=== PATIENT | male | born 1960 | race American Indian/Alaskan Native ===

== ENCOUNTER 2020-11-02 11:02 | Inpatient (IN) | payer MEDICAID, MEDICARE ==
[2020-11-02] MEDS ORDERED: SODIUM CHLORIDE 0.9% 1000 ML 1,000 ML IV ONE (17:16)
[2020-11-02] MEDS ORDERED: ONDANSETRON 4 MG/2 ML INJ IV ONE (17:16)
[2020-11-02] MEDS ORDERED: MORPHINE 4 MG/1 ML INJ IV ONE (17:16)
--- NOTE | 2020-11-02 17:21 | Emergency Department Report ---
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 No preceding fall, trauma, or injury. Patient is not anticoagulated. No history of similar symptoms. Patient took muscle relaxers with limited relief. No known sick contacts. Patient does not have a history of recurrent headaches or neck pain. Patient has not received his COVID-19 vaccine series. No known history of cardiac issues or kidney issues. Endorses occasional alcohol use. Denies fever, chills, cough, chest pain, syncope, seizure, paresthesias, numbness, weakness. Denies all other complaints at this time. History obtained using [employer] [place] regulatory product manager via iPhone/iPad. - Related Data Allergies Allergy/AdvReac Type Severity Reaction Status Date / Time No Known Allergies Allergy Verified 11/02/20 20:32 ED Review of Systems ROS: Stated complaint: VOMITING/THROAT/NECK(L) SIDE ARM PAIN Other details as noted in HPI Other: Further review of systems is limited secondary to patient's baseline deafness. See HPI for details. ED Past Medical Hx - Past Medical History Hx Headaches / Migraines: Yes Additional medical history: MUSCLE SPASMS - Social History Smoking Status: Never Smoker Substance Use Type: None ED Physical Exam - General Limitations: Other - Other Other exam information: General: Awake and alert. No acute distress. Head: Atraumatic, normocephalic. Eyes: EOMI. Pupils are equal and round, reactive to light. Normal sclera and conjunctiva. ENT: Oral mucosa is moist. Normal pharyngeal exam. Neck: Supple. No lymphadenopathy. Tenderness to palpation along the left anterior neck. No overlying warmth or edema. No carotid bruits or thrills. Pulmonary: No respiratory distress. Clear to auscultation bilaterally. Cardiac: Regular rate and rhythm. Pulses are palpable and equal bilaterally. No lower extremity cyanosis or edema. Skin: Warm and dry. No rashes. Abdomen: Soft, non-tender, non-protuberant. No guarding, rigidity, or rebound. Bowel sounds are normal. No organomegaly or masses noted. Back: Normal alignment. No CVA tenderness. Extremities: Symmetrical. Full range of motion intact. Neurological: Alert and oriented, appropriately interactive, no focal deficits. Baseline deafness noted Psych: Cooperative. Appropriate mood and affect. Speech is evenly metered. Thoughts are logically construed. ED Course Vital Signs 11/02/20 11/02/20 12:13 17:11 Temperature 98.4 F Pulse Rate 99 H 84 Respiratory 18 16 Rate Blood Pressure 156/111 Blood Pressure 167/112 [Left] O2 Sat by Pulse 97 95 Oximetry ED Medical Decision Making - Lab Data Result diagrams: 11/02/20 20:33 11/02/20 17:24 - EKG Data 11/02/20 19:01 EKG shows normal sinus rhythm with a ventricular rate of 72 bpm. Normal axis. Normal DC interval. Normal QT interval. Left ventricular hypertrophy. Single atrial premature complex. Lateral T wave inversions. No old EKG available for comparison. Over read by attending emergency physician, who agrees with this interpretation - Medical Decision Making Differential diagnosis including but not limited to: acute coronary syndrome, cardiac arrhythmia, pericarditis, pericardial effusion/cardiac tamponade, dehydration, electrolyte abnormality, hypoglycemia, intracranial hemorrhage, stroke, cervical artery dissection On re-evaluation, patient remains stable. EKG shows lateral T-wave inversions without ST segment elevation. Initial and repeat troponin both elevated. Remainder of labs are unremarkable. Chest x-ray is negative. CT of the head and CTA of the neck without acute process. Clinical presentation is consistent with NSTEMI. Given aspirin. Cardiology consultation initiated. Heparin protocol initiated. 20:32: Paged hospitalist for admission. Requested admission to PM hospitalist. 21:39: PM hospitalist agrees to admit. Case discussed with Dr. Cortez, attending emergency physician, who agrees with diagnostic work-up/plan of care. Critical care attestation.: If time is entered above; I have spent that time in minutes in the direct care of this critically ill patient, excluding procedure time. ED Disposition Clinical Impression: NSTEMI (non-ST elevated myocardial infarction) Disposition: OP ADMIT IP TO THIS HOSP Is pt being admited?: Yes Does the pt Need Aspirin: Yes Condition: Serious Time of Disposition: 21:39
--- NOTE | 2020-11-02 17:43 | XRay Report ---
CHEST 1 VIEW 11/02/2020 4:36 PM INDICATION / CLINICAL INFORMATION: dizziness/left arm pain. COMPARISON: None available. FINDINGS: SUPPORT DEVICES: None. HEART / MEDIASTINUM: No significant abnormality. LUNGS / PLEURA: No significant pulmonary or pleural abnormality. No pneumothorax. ADDITIONAL FINDINGS: No significant additional findings. IMPRESSION: 1. No acute findings. Signer Name: Dhruv Barber MD Signed: 11/02/2020 5:38 PM Workstation Name: [email or web address]
[2020-11-02 17:49] LABS: Basophils # (Auto) 0.1 K/mm3 (0.0-0.1); Basophils % (Auto) 0.6 % (0.0-1.8); Eosinophils # (Auto) 0.2 K/mm3 (0.0-0.4); Eosinophils % (Auto) 2.6 % (0.0-4.3); Hematocrit 47.3 % (35.5-45.6); Hemoglobin 15.8 gm/dl (11.8-15.2); Lymphocytes # (Auto) 1.8 K/mm3 (1.2-5.4); Lymphocytes % (Auto) 20.9 % (13.4-35.0); Mean Corpuscular HGB Conc 34 % (32-34); Mean Corpuscular Volume 85 fl (84-94); Monocytes # (Auto) 0.8 K/mm3 (0.0-0.8); Monocytes % (Auto) 9.3 % (0.0-7.3); Platelet Count 287 K/mm3 (140-440); Red Blood Count 5.58 M/mm3 (3.65-5.03); Red Cell Distribution Width 13.7 % (13.2-15.2)
[2020-11-02 18:07] LABS: Alanine Aminotransferase 21 units/L (7-56); Albumin 4.7 g/dL (3.9-5); BUN/Creatinine Ratio 27; Blood Urea Nitrogen 35 mg/dL (9-20); Calcium 10.1 mg/dL (8.4-10.2); Hemolysis Index 6
[2020-11-02 18:27] LABS: HDL Cholesterol 57 mg/dL (40-59); LDL Cholesterol,Direct 209 mg/dL (50-130)
--- NOTE | 2020-11-02 19:41 | Cat Scan Report ---
CT head/brain wo con INDICATION / CLINICAL INFORMATION: 60 years Male; dizziness/vomiting/neck pain; hx htn, deaf x7days. TECHNIQUE: Routine CT head without contrast. All CT scans at this location are performed using CT dos e reduction for ALARA by means of automated exposure control. COMPARISON: None. 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 Otherwise, no acute hemorrhage, mass effect, midline shift, hydrocephalus, or acute, large territori al infarct. No signs of significant atrophy or chronic infarct. No significant white matter abnormali ty seen. Note, there is minimal high attenuation in the proximal M1 segment region on the right, although othe r portions of the middle cerebral arteries are also high attenuation-I believe this finding does not represent acute thrombus. CRANIOCERVICAL JUNCTION: No significant abnormality. ORBITS: No significant abnormality of visualized orbits. SINUSES / MASTOIDS: Visualized paranasal sinuses and mastoid air cells are essentially clear. ADDITIONAL FINDINGS: None. IMPRESSION: 1. No focal mass, hemorrhage, hydrocephalus, or acute, large territorial infarct. Signer Name: Tu Goodman MD, III Signed: 11/02/2020 7:36 PM Workstation Name: [id number]
--- NOTE | 2020-11-02 19:44 | Cat Scan Report ---
CT angio neck INDICATION / CLINICAL INFORMATION: 60 years Male; dizziness/vomiting/neck pain; hx htn, deaf LT side pain x7days [id number] 100ml. TECHNIQUE: Thin cut axial images obtained through the head during IV bolus contrast administration. S agittal, coronal, and 3 plane MIP reconstructions performed by the technologist. NASCET type criteria used evaluate stenoses. All CT scans at this location are performed using CT dose reduction for ALAR A by means of automated exposure control. COMPARISON: None available. FINDINGS: CAROTID ARTERIES: There is no significant stenosis involving carotid bifurcations or internal carotid arteries by NASCET criteria. The proximal left common carotid arteries are not secured by the dense contrast within the adjacent venous structures. However, there is no clear evidence of significant st enosis involving visualized segments. 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 The right vertebr al artery is dominant. The hypertrophic changes within the right transverse foramen at C4 result in m ild narrowing of the right vertebral artery. Otherwise, the vertebral vessels are unremarkable. ARCH: The arch vessels are also obscured by the beam hardening artifact. However, there appears be de velopmental common origin of the brachiocephalic and left common carotid arteries. ADDITIONAL FINDINGS: There are multilevel advanced degenerative the changes involving the visualized cervical spine. There is mild calcification involving the visualized intracranial ICAs without signif icant stenosis. IMPRESSION: There is no significant stenosis involving carotid arteries by NASCET criteria. 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 Signer Name: Fausto Dasilva MD Signed: 11/02/2020 7:40 PM Workstation Name: [id number]
[2020-11-02 20:10] LABS: INR 0.99 (0.87-1.13)
[2020-11-02 20:11] LABS: Partial Thromboplastin Time 28.2 Sec. (24.2-36.6)
[2020-11-02] MEDS ORDERED: HEPARIN 10,000 UNITS/10 ML VIAL IV PRN (20:26)
[2020-11-02] MEDS ORDERED: HEPARIN 10,000 UNITS/10 ML VIAL IV ONE ×2 (20:26→20:40)
[2020-11-02 20:50] LABS: Hematocrit 45.5 % (35.5-45.6); Hemoglobin 15.2 gm/dl (11.8-15.2)
[2020-11-02 20:58] LABS: INR 1.02 (0.87-1.13)
[2020-11-02 20:59] LABS: Partial Thromboplastin Time 27.6 Sec. (24.2-36.6)
[2020-11-02] MEDS ORDERED: ASPIRIN 81 MG TAB CHEW PO ONE (21:39)
[2020-11-02] MEDS ORDERED: NITROGLYCERIN 0.4 MG TAB SUBL SL PRN ×2 (21:49→21:56)
[2020-11-02] MEDS ORDERED: ACETAMINOPHEN 325 MG TAB PO PRN (21:56)
[2020-11-02] MEDS ORDERED: MORPHINE 4 MG/1 ML INJ IV PRN (21:56)
[2020-11-02] MEDS ORDERED: traMADol 50 MG TAB PO PRN (21:56)
[2020-11-02] MEDS ORDERED: SODIUM CHLORIDE 0.9% 1000 ML 1,000 ML IV SCH (22:00)
--- NOTE | 2020-11-02 22:04 | History and Physical Report ---
History of Present Illness Date of examination: 11/02/20 Date of admission: 11/02/20 Chief complaint: Headache, vomiting, throat and left-sided neck pain History of present illness: 60-year-old deaf male with history of hypertension and migraine and occasional alcohol abuse was brought to the emergency room because of headache, dizziness, left-sided neck pain, nausea, vomiting, diarrhea, and left arm pain starting yesterday and worsening today. No preceding fall, trauma, or injury. Patient took muscle relaxers with limited relief. No known sick contacts. Patient does not have a history of recurrent headaches or neck pain. Patient has not received his COVID-19 vaccine series. Denies fever, chills, cough, chest pain, syncope, seizure, paresthesias, numbness, weakness. Denies all other complaints at this time. In the emergency room patient is found to have elevated troponin. Initial troponin is 0.121 Past History Past Medical History: hypertension, other (Migraine) Medications and Allergies Allergies Allergy/AdvReac Type Severity Reaction Status Date / Time No Known Allergies Allergy Verified 11/02/20 20:32 Active Meds: Active Medications Acetaminophen (Acetaminophen 325 Mg Tab) 650 mg PO Q6H PRN PRN Reason: Pain, Mild (1-3) Aspirin (Aspirin Ec 325 Mg Tab) 325 mg PO QDAY MARIA C Aspirin (Aspirin Ec 325 Mg Tab) 325 mg PO QDAY MARIA C Atorvastatin Calcium (Atorvastatin 40 Mg Tab) 40 mg PO QHS MARIA C Atorvastatin Calcium (Atorvastatin 40 Mg Tab) 40 mg PO QHS MARIA C Heparin Sodium (Porcine) (Heparin 10,000 Units/10 Ml Vial) 3,100 unit 40 unit/kg (3100 unit) IV Q6H PRN PRN Reason: Anti-Xa Assay < 0.1 units/ml Heparin Sodium/Sodium Chloride (Heparin/ 0.45% Nacl-25,000 Unit/500 Ml) 25,000 unit in 500 mls @ 20 mls/hr IV TITRATE MARIA C; Protocol Sodium Chloride (Nacl 0.9% 1000 Ml) 1,000 mls @ 100 mls/hr IV DIRECT MARIA C Sodium Chloride (Nacl 0.9% 1000 Ml) 1,000 mls @ 100 mls/hr IV DIRECT MARIA C Morphine Sulfate (Morphine 4 Mg/1 Ml Inj) 2 mg IV Q5MIN PRN PRN Reason: Chest Pain Nitroglycerin (Nitroglycerin 0.4 Mg Tab Subl) 0.4 mg SL .Q5MIN PRN PRN Reason: Chest Pain Nitroglycerin (Nitroglycerin 0.4 Mg Tab Subl) 0.4 mg SL Q5M PRN PRN Reason: Chest Pain Sodium Chloride (Sodium Chloride 0.9% 10 Ml Flush Syringe) 10 ml IV PRN PRN PRN Reason: LINE FLUSH Tramadol HCl (Tramadol 50 Mg Tab) 50 mg PO Q6H PRN PRN Reason: Pain, Moderate (4-6) Review of Systems Cardiovascular: chest pain, other (Left side of the neck pain) Gastrointestinal: vomiting Neurological: headaches Exam - Constitutional Vitals: Temp Pulse Resp BP Pulse Ox 98.4 F 84 16 167/112 95 11/02/20 12:13 11/02/20 17:11 11/02/20 17:11 11/02/20 17:11 11/02/20 17:11 General appearance: Present: no acute distress, well-nourished - EENT Eyes: Present: PERRL ENT: hearing intact, clear oral mucosa - Neck Neck: Present: supple, normal ROM - Respiratory Respiratory effort: normal Respiratory: bilateral: CTA - Cardiovascular Heart Sounds: Present: S1 & S2. Absent: rub, click - Extremities Extremities: pulses symmetrical, No edema Peripheral Pulses: within normal limits - Abdominal General gastrointestinal: Present: soft, non-tender, non-distended, normal bowel sounds Male genitourinary: Present: normal - Integumentary Integumentary: Present: clear, warm, dry - Musculoskeletal Musculoskeletal: gait normal, strength equal bilaterally - Psychiatric Psychiatric: appropriate mood/affect, intact judgment & insight - Neurologic Neurologic: CNII-XII intact, moves all extremities HEART Score - HEART Score Troponin: Troponin T 0.135 ng/mL (0.00-0.029) H* 11/02/20 19:43 Results - Labs CBC & Chem 7: 11/02/20 20:33 11/02/20 17:24 Labs: Laboratory Last Values WBC 8.5 K/mm3 (4.5-11.0) 11/02/20 17:24 RBC 5.58 M/mm3 (3.65-5.03) H 11/02/20 17:24 Hgb 15.2 gm/dl (11.8-15.2) 11/02/20 20:33 Hct 45.5 % (35.5-45.6) 11/02/20 20:33 MCV 85 fl (84-94) 11/02/20 17:24 MCH 28 pg (28-32) 11/02/20 17:24 MCHC 34 % (32-34) 11/02/20 17:24 RDW 13.7 % (13.2-15.2) 11/02/20 17:24 Plt Count 251 K/mm3 (140-440) 11/02/20 20:33 Lymph % (Auto) 20.9 % (13.4-35.0) 11/02/20 17:24 [place] % (Auto) 9.3 % (0.0-7.3) H 11/02/20 17:24 Eos % (Auto) 2.6 % (0.0-4.3) 11/02/20 17:24 Baso % (Auto) 0.6 % (0.0-1.8) 11/02/20 17:24 Lymph # (Auto) 1.8 K/mm3 (1.2-5.4) 11/02/20 17:24 [place] # (Auto) 0.8 K/mm3 (0.0-0.8) 11/02/20 17:24 Eos # (Auto) 0.2 K/mm3 (0.0-0.4) 11/02/20 17:24 Baso # (Auto) 0.1 K/mm3 (0.0-0.1) 11/02/20 17:24 Seg Neutrophils % 66.6 % (40.0-70.0) 11/02/20 17:24 Seg Neutrophils # 5.7 K/mm3 (1.8-7.7) 11/02/20 17:24 PT 13.9 Sec. (12.2-14.9) 11/02/20 20:33 INR 1.02 (0.87-1.13) 11/02/20 20:33 APTT 27.6 Sec. (24.2-36.6) 11/02/20 20:33 Sodium 140 mmol/L (137-145) 11/02/20 17:24 Potassium 4.2 mmol/L (3.6-5.0) 11/02/20 17:24 Chloride 101.7 mmol/L (98-107) 11/02/20 17:24 Carbon Dioxide 24 mmol/L (22-30) 11/02/20 17:24 Anion Gap 19 mmol/L 11/02/20 17:24 BUN 35 mg/dL (9-20) H 11/02/20 17:24 Creatinine 1.3 mg/dL (0.8-1.3) 11/02/20 17:24 Estimated GFR > 60 ml/min 11/02/20 17:24 BUN/Creatinine Ratio 27 % 11/02/20 17:24 Glucose 101 mg/dL (75-100) H 11/02/20 17:24 Calcium 10.1 mg/dL (8.4-10.2) 11/02/20 17:24 Magnesium 2.50 mg/dL (1.7-2.3) H 11/02/20 17:24 Total Bilirubin 0.40 mg/dL (0.1-1.2) 11/02/20 17:24 AST 29 units/L (5-40) 11/02/20 17:24 ALT 21 units/L (7-56) 11/02/20 17:24 Alkaline Phosphatase 131 units/L (35-129) H 11/02/20 17:24 Total Creatine Kinase 461 units/L (55-170) H 11/02/20 17:24 Troponin T 0.135 ng/mL (0.00-0.029) H* 11/02/20 19:43 Total Protein 7.9 g/dL (6.3-8.2) 11/02/20 17:24 Albumin 4.7 g/dL (3.9-5) 11/02/20 17:24 Albumin/Globulin Ratio 1.5 % 11/02/20 17:24 Triglycerides 126 mg/dL (2-149) 11/02/20 17:24 Cholesterol 268 mg/dL (50-199) H 11/02/20 17:24 LDL Cholesterol Direct 209 mg/dL (50-130) H 11/02/20 17:24 HDL Cholesterol 57 mg/dL (40-59) 11/02/20 17:24 Cholesterol/HDL Ratio 4.70 % 11/02/20 17:24 Lipase 41 units/L (13-60) 11/02/20 17:24 - Imaging and Cardiology Chest x-ray: report reviewed CT Scan - head: report reviewed Assessment and Plan VTE prophylaxis?: Chemical Plan of care discussed with patient/family: Yes - Patient Problems (1) NSTEMI (non-ST elevated myocardial infarction) Current Visit: Yes Status: Acute Plan to address problem: Admit the patient to the medical telemetry. Aspirin 325 mg p.o. daily. Lipitor 40 mg p.o. daily. Nitroglycerin as needed. We do the serial cardiac enzyme. Echocardiogram cardiology consult. Heparin drip as per protocol (2) Hypertension Current Visit: Yes Status: Acute Plan to address problem: Hydralazine 10 mg IV every 6 hours as needed. We continue the home medication. We will monitor the blood pressure closely (3) Migraine Current Visit: Yes Status: Acute Plan to address problem: Tylenol 650 mg p.o. every 6 as needed. Morphine 1 to 2 mg IV every 4 hours as needed. (4) Vomiting Current Visit: Yes Status: Acute Plan to address problem: Pepcid 20 mg p.o. twice daily for GI prophylaxis. Zofran 4 mg IV every 6 hours as needed. We will monitor the patient closely (5) DVT prophylaxis Current Visit: Yes Status: Acute Plan to address problem: Heparin drip as per protocol for DVT prophylaxis. Pepcid 20 mg p.o. twice daily for GI prophylaxis. Patient is a full code
[2020-11-02 23:58] LABS: Basophils # (Auto) 0.1 K/mm3 (0.0-0.1); Basophils % (Auto) 0.7 % (0.0-1.8); Eosinophils # (Auto) 0.3 K/mm3 (0.0-0.4); Eosinophils % (Auto) 3.9 % (0.0-4.3); Hematocrit 45.8 % (35.5-45.6); Hemoglobin 15.2 gm/dl (11.8-15.2); Lymphocytes % (Auto) 24.6 % (13.4-35.0); Mean Corpuscular HGB Conc 33 % (32-34); Mean Corpuscular Volume 85 fl (84-94); Platelet Count 262 K/mm3 (140-440); Red Blood Count 5.37 M/mm3 (3.65-5.03); Red Cell Distribution Width 13.9 % (13.2-15.2)
[2020-11-03 00:23] LABS: BUN/Creatinine Ratio 23; Blood Urea Nitrogen 30 mg/dL (9-20); Calcium 9.5 mg/dL (8.4-10.2); Hemolysis Index 3
[2020-11-03] MEDS ORDERED: ASPIRIN 81 MG TAB CHEW ONE (00:34)
[2020-11-03 00:44] LABS: Bilirubin,Urine NEG (Negative); Blood,Urine NEG (Negative); Color,Urine Yellow (Yellow); Mucus,Urine FEW /HPF; Protein,Urine <15 mg/dL mg/dL (Negative); Urobilinogen,Urine < 2.0 mg/dL (<2.0)
[2020-11-03] MEDS: HEPARIN/ 0.45% NACL DRIP 25,000 UNIT/500 ML BAG IV SCH ×3 (02:36→21:37)
[2020-11-03 05:55] LABS: Basophils % (Auto) 0.2 % (0.0-1.8); Eosinophils # (Auto) 0.3 K/mm3 (0.0-0.4); Eosinophils % (Auto) 4.5 % (0.0-4.3); Hematocrit 44.2 % (35.5-45.6); Hemoglobin 14.6 gm/dl (11.8-15.2); Lymphocytes # (Auto) 1.8 K/mm3 (1.2-5.4); Lymphocytes % (Auto) 22.8 % (13.4-35.0); Mean Corpuscular HGB Conc 33 % (32-34); Mean Corpuscular Volume 86 fl (84-94); Monocytes # (Auto) 0.8 K/mm3 (0.0-0.8); Monocytes % (Auto) 10.1 % (0.0-7.3); Platelet Count 241 K/mm3 (140-440); Red Blood Count 5.15 M/mm3 (3.65-5.03); Red Cell Distribution Width 13.7 % (13.2-15.2)
[2020-11-03 06:17] LABS: BUN/Creatinine Ratio 23; Blood Urea Nitrogen 27 mg/dL (9-20); Hemolysis Index 6
[2020-11-03] MEDS ORDERED: ASPIRIN EC 325 MG TAB PO SCH (10:00)
--- NOTE | 2020-11-03 12:39 | Progress Note ---
Assessment and Plan Assessment and plan: (1) NSTEMI (non-ST elevated myocardial infarction) Current Visit: Yes Status: Acute Plan to address problem: Admit the patient to the medical telemetry. Aspirin 325 mg p.o. daily. Lipitor 40 mg p.o. daily. Nitroglycerin as needed. We do the serial cardiac enzyme. Echocardiogram cardiology consult. Heparin drip as per protocol (2) Hypertension Current Visit: Yes Status: Acute Plan to address problem: Hydralazine 10 mg IV every 6 hours as needed. We continue the home medication. We will monitor the blood pressure closely (3) Migraine Current Visit: Yes Status: Acute Plan to address problem: Tylenol 650 mg p.o. every 6 as needed. Morphine 1 to 2 mg IV every 4 hours as needed. (4) Vomiting Current Visit: Yes Status: Acute Plan to address problem: Pepcid 20 mg p.o. twice daily for GI prophylaxis. Zofran 4 mg IV every 6 hours as needed. We will monitor the patient closely (5) DVT prophylaxis Current Visit: Yes Status: Acute Plan to address problem: Heparin drip as per protocol for DVT prophylaxis. Pepcid 20 mg p.o. twice daily for GI prophylaxis. Patient is a full code 11/03/20 Patient with hypertension, hearing impaired. He presented with headache, neck pain. Found to have elevated Troponins, Ct Neck shows cervical; arthritis. Cardiology consulted. History Interval history: Headache left sided neck pain No fever Hospitalist Physical - Physical exam Narrative exam: Gen: Not in acute distress, lying in bed, impaired hearing HEENT: Normocephalic, atraumatic Neck : supple, no JVD, tender left side of neck Heart:S1 and S2 reg, no murmurs, rubs or gallop Lungs: clear to auscultation bilaterally, no wheeze Abd: Soft , non tender, non distended, normal bowel sounds Ext: No edema, no clubbing, no cyanosis Neuro: Awake, alert, oriented, moves all ext - Constitutional Vitals: Temp Pulse Resp BP Pulse Ox 97.9 F 58 L 16 130/92 99 11/03/20 11:40 11/03/20 11:40 11/03/20 11:40 11/03/20 11:40 11/03/20 11:40 General appearance: Present: no acute distress, well-nourished HEART Score - HEART Score Troponin: Troponin T 0.134 ng/mL (0.00-0.029) H* 11/03/20 05:28 Results - Labs CBC & Chem 7: 11/04/20 04:57 11/03/20 05:28 Labs: Laboratory Last Values WBC 7.8 K/mm3 (4.5-11.0) 11/03/20 05:28 RBC 5.15 M/mm3 (3.65-5.03) H 11/03/20 05:28 Hgb 14.6 gm/dl (11.8-15.2) 11/03/20 05:28 Hct 44.2 % (35.5-45.6) 11/03/20 05:28 MCV 86 fl (84-94) 11/03/20 05:28 MCH 28 pg (28-32) 11/03/20 05:28 MCHC 33 % (32-34) 11/03/20 05:28 RDW 13.7 % (13.2-15.2) 11/03/20 05:28 Plt Count 241 K/mm3 (140-440) 11/03/20 05:28 Lymph % (Auto) 22.8 % (13.4-35.0) 11/03/20 05:28 [place] % (Auto) 10.1 % (0.0-7.3) H 11/03/20 05:28 Eos % (Auto) 4.5 % (0.0-4.3) H 11/03/20 05:28 Baso % (Auto) 0.2 % (0.0-1.8) 11/03/20 05:28 Lymph # (Auto) 1.8 K/mm3 (1.2-5.4) 11/03/20 05:28 [place] # (Auto) 0.8 K/mm3 (0.0-0.8) 11/03/20 05:28 Eos # (Auto) 0.3 K/mm3 (0.0-0.4) 11/03/20 05:28 Baso # (Auto) 0.0 K/mm3 (0.0-0.1) 11/03/20 05:28 Seg Neutrophils % 62.4 % (40.0-70.0) 11/03/20 05:28 Seg Neutrophils # 4.9 K/mm3 (1.8-7.7) 11/03/20 05:28 PT 13.9 Sec. (12.2-14.9) 11/02/20 20:33 INR 1.02 (0.87-1.13) 11/02/20 20:33 APTT 27.6 Sec. (24.2-36.6) 11/02/20 20:33 Heparin Anti-Xa Level 0.69 U.I./ml (0.3-0.7) 11/03/20 10:19 Sodium 141 mmol/L (137-145) 11/03/20 05:28 Potassium 3.9 mmol/L (3.6-5.0) 11/03/20 05:28 Chloride 107.1 mmol/L (98-107) H 11/03/20 05:28 Carbon Dioxide 20 mmol/L (22-30) L 11/03/20 05:28 Anion Gap 18 mmol/L 11/03/20 05:28 BUN 27 mg/dL (9-20) H 11/03/20 05:28 Creatinine 1.2 mg/dL (0.8-1.3) 11/03/20 05:28 Estimated GFR > 60 ml/min 11/03/20 05:28 BUN/Creatinine Ratio 23 % 11/03/20 05:28 Glucose 103 mg/dL (75-100) H 11/03/20 05:28 Calcium 9.0 mg/dL (8.4-10.2) 11/03/20 05:28 Magnesium 2.50 mg/dL (1.7-2.3) H 11/02/20 17:24 Total Bilirubin 0.40 mg/dL (0.1-1.2) 11/02/20 17:24 AST 29 units/L (5-40) 11/02/20 17:24 ALT 21 units/L (7-56) 11/02/20 17:24 Alkaline Phosphatase 131 units/L (35-129) H 11/02/20 17:24 Total Creatine Kinase 461 units/L (55-170) H 11/02/20 17:24 Troponin T 0.134 ng/mL (0.00-0.029) H* 11/03/20 05:28 Total Protein 7.9 g/dL (6.3-8.2) 11/02/20 17:24 Albumin 4.7 g/dL (3.9-5) 11/02/20 17:24 Albumin/Globulin Ratio 1.5 % 11/02/20 17:24 Triglycerides 126 mg/dL (2-149) 11/02/20 17:24 Cholesterol 268 mg/dL (50-199) H 11/02/20 17:24 LDL Cholesterol Direct 209 mg/dL (50-130) H 11/02/20 17:24 HDL Cholesterol 57 mg/dL (40-59) 11/02/20 17:24 Cholesterol/HDL Ratio 4.70 % 11/02/20 17:24 Lipase 41 units/L (13-60) 11/02/20 17:24 Urine Color Yellow (Yellow) 11/03/20 00:19 Urine Turbidity Hazy (Clear) 11/03/20 00:19 Urine pH 5.0 (5.0-7.0) 11/03/20 00:19 Ur Specific [place] 1.060 (1.003-1.030) H 11/03/20 00:19 Urine Protein <15 mg/dl mg/dL (Negative) 11/03/20 00:19 Urine Glucose (UA) Neg mg/dL (Negative) 11/03/20 00:19 Urine Ketones Neg mg/dL (Negative) 11/03/20 00:19 Urine Blood Neg (Negative) 11/03/20 00:19 Urine Nitrite Neg (Negative) 11/03/20 00:19 Urine Bilirubin Neg (Negative) 11/03/20 00:19 Urine Urobilinogen < 2.0 mg/dL (<2.0) 11/03/20 00:19 Ur Leukocyte Esterase Neg (Negative) 11/03/20 00:19 Urine WBC (Auto) 4.0 /HPF (0.0-6.0) 11/03/20 00:19 Urine RBC (Auto) 4.0 /HPF (0.0-6.0) 11/03/20 00:19 Uric Acid Crystals 1+ 11/03/20 00:19 Urine Mucus Few /HPF 11/03/20 00:19 Active Medications - Current Medications Current Medications: Generic Name Dose Route Start Last Admin Trade Name Freq PRN Reason Stop Dose Admin Acetaminophen 650 mg 11/02/20 21:56 Acetaminophen 325 Mg Tab PO Q6H PRN Pain, Mild (1-3) Aspirin 325 mg 11/03/20 10:00 Aspirin Ec 325 Mg Tab PO QDAY MARIA C Atorvastatin Calcium 40 mg 11/02/20 22:00 11/03/20 00:39 Atorvastatin 40 Mg Tab PO 40 mg QHS MARIA C Administration Heparin Sodium (Porcine) 3,100 unit 11/02/20 20:26 11/03/20 02:35 Heparin 10,000 Units/10 Ml Vial 40 unit/kg (3100 unit) 3,100 unit IV Administration Q6H PRN Anti-Xa Assay < 0.1 units/ml Heparin Sodium/Sodium Chloride 25,000 unit in 500 mls @ 20 mls/hr 11/02/20 21:00 11/03/20 12:09 Heparin/ 0.45% Nacl-25,000 Unit/500 Ml IV 1,000 units/hr TITRATE MARIA C 20 mls/hr Administration Protocol 1,000 UNITS/HR Sodium Chloride 1,000 mls @ 100 mls/hr 11/02/20 22:00 Nacl 0.9% 1000 Ml IV DIRECT MARIA C Morphine Sulfate 2 mg 11/02/20 21:56 Morphine 4 Mg/1 Ml Inj IV Q5MIN PRN Chest Pain Nitroglycerin 0.4 mg 11/02/20 21:49 Nitroglycerin 0.4 Mg Tab Subl SL .Q5MIN PRN Chest Pain Sodium Chloride 10 ml 11/02/20 21:56 Sodium Chloride 0.9% 10 Ml Flush Syringe IV PRN PRN LINE FLUSH Tramadol HCl 50 mg 11/02/20 21:56 Tramadol 50 Mg Tab PO Q6H PRN Pain, Moderate (4-6)
[2020-11-03] MEDS: ASPIRIN EC 325 MG TAB PO SCH (13:27)
--- NOTE | 2020-11-03 14:47 | Consultation ---
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 He was admitted to the hospital with chief complaints of nausea, vomiting, headache and complained of generalized muscle spasms. While in the emergency room, laboratory values ordered included serial troponin levels which were elevated at 0.13. These levels were flat, and unchanged on four serial measurements. Cardiology consultation was requested for assessment of troponin elevation. The patient reports no chest pain, no shortness of breath, no cardiac complaints. No significant cardiac history was reported on review of his records. EKG shows normal sinus rhythm, left ventricular hypertrophy by voltage criteria with nonspecific ST changes. Chest x-ray reveals normal-sized cardiac silhouette and clear lungs. Patient is currently on the telemetry floor, appears comfortable in no acute distress. Past History Past Medical History: hypertension, other (Migraine) Medications and Allergies Allergies Allergy/AdvReac Type Severity Reaction Status Date / Time No Known Allergies Allergy Verified 11/02/20 20:32 Active Meds: Active Medications Acetaminophen (Acetaminophen 325 Mg Tab) 650 mg PO Q6H PRN PRN Reason: Pain, Mild (1-3) Aspirin (Aspirin Ec 325 Mg Tab) 325 mg PO QDAY [facility] Last Admin: 11/03/20 13:27 Dose: 325 mg Documented by: Atorvastatin Calcium (Atorvastatin 40 Mg Tab) 40 mg PO QHS [facility] Last Admin: 11/03/20 00:39 Dose: 40 mg Documented by: Heparin Sodium (Porcine) (Heparin 10,000 Units/10 Ml Vial) 3,100 unit 40 unit/ kg (3100 unit) IV Q6H PRN PRN Reason: Anti-Xa Assay < 0.1 units/ml Last Admin: 11/03/20 02:35 Dose: 3,100 unit Documented by: Heparin Sodium/Sodium Chloride (Heparin/ 0.45% Nacl-25,000 Unit/500 Ml) 25,000 unit in 500 mls @ 20 mls/hr IV TITRATE MARIA C; Protocol Last Admin: 11/03/20 12:09 Dose: 1,000 units/hr, 20 mls/hr Documented by: Sodium Chloride (Nacl 0.9% 1000 Ml) 1,000 mls @ 100 mls/hr IV DIRECT MARIA C Morphine Sulfate (Morphine 4 Mg/1 Ml Inj) 2 mg IV Q5MIN PRN PRN Reason: Chest Pain Nitroglycerin (Nitroglycerin 0.4 Mg Tab Subl) 0.4 mg SL .Q5MIN PRN PRN Reason: Chest Pain Sodium Chloride (Sodium Chloride 0.9% 10 Ml Flush Syringe) 10 ml IV PRN PRN PRN Reason: LINE FLUSH Tramadol HCl (Tramadol 50 Mg Tab) 50 mg PO Q6H PRN PRN Reason: Pain, Moderate (4-6) Review of Systems Cardiovascular: no chest pain, no orthopnea, no palpitations, no rapid/irregular heart beat, no edema, no syncope, no lightheadedness, no shortness of breath Physical Examination Vital Signs Temp Pulse Resp BP Pulse Ox 98.4 F 99 H 18 156/111 97 11/02/20 12:13 11/02/20 12:13 11/02/20 12:13 11/02/20 12:13 11/02/20 12:13 General appearance: no acute distress HEENT: Positive: PERRL Neck: Positive: neck supple Cardiac: Positive: Reg Rate and Rhythm Lungs: Positive: clear to auscultation Neuro: Positive: Grossly Intact Abdomen: Positive: Soft Male genitourinary: Positive: deferred Skin: Positive: Clear Extremities: Absent: edema Results 11/03/20 05:28 11/03/20 05:28 Cardiac Enzymes 11/02/20 Range/Units 17:24 AST 29 (5-40) units/L Coagulation 11/02/20 11/02/20 Range/Units 19:43 20:33 PT 13.6 13.9 (12.2-14.9) Sec. INR 0.99 1.02 (0.87-1.13) APTT 28.2 27.6 (24.2-36.6) Sec. Lipids 11/02/20 Range/Units 17:24 Triglycerides 126 (2-149) mg/dL Cholesterol 268 H (50-199) mg/dL HDL Cholesterol 57 (40-59) mg/dL Cholesterol/HDL Ratio 4.70 % CBC 11/02/20 11/02/20 11/02/20 Range/Units 17:24 20:33 23:48 WBC 8.5 8.0 (4.5-11.0) K/mm3 RBC 5.58 H 5.37 H (3.65-5.03) M/mm3 Hgb 15.8 H 15.2 15.2 (11.8-15.2) gm/dl Hct 47.3 H 45.5 45.8 H (35.5-45.6) % Plt Count 287 251 262 (140-440) K/mm3 Lymph # (Auto) 1.8 2.0 (1.2-5.4) K/mm3 [place] # (Auto) 0.8 1.0 H (0.0-0.8) K/mm3 Eos # (Auto) 0.2 0.3 (0.0-0.4) K/mm3 Baso # (Auto) 0.1 0.1 (0.0-0.1) K/mm3 11/03/20 Range/Units 05:28 WBC 7.8 (4.5-11.0) K/mm3 RBC 5.15 H (3.65-5.03) M/mm3 Hgb 14.6 (11.8-15.2) gm/dl Hct 44.2 (35.5-45.6) % Plt Count 241 (140-440) K/mm3 Lymph # (Auto) 1.8 (1.2-5.4) K/mm3 [place] # (Auto) 0.8 (0.0-0.8) K/mm3 Eos # (Auto) 0.3 (0.0-0.4) K/mm3 Baso # (Auto) 0.0 (0.0-0.1) K/mm3 Comprehensive Metabolic Panel 11/02/20 11/02/20 11/03/20 Range/Units 17:24 23:48 05:28 Sodium 140 142 141 (137-145) mmol/L Potassium 4.2 4.4 3.9 (3.6-5.0) mmol/L Chloride 101.7 104.7 107.1 H (98-107) mmol/L Carbon Dioxide 24 24 20 L (22-30) mmol/L BUN 35 H 30 H 27 H (9-20) mg/dL Creatinine 1.3 1.3 1.2 (0.8-1.3) mg/dL Glucose 101 H 99 103 H (75-100) mg/dL Calcium 10.1 9.5 9.0 (8.4-10.2) mg/dL AST 29 (5-40) units/L ALT 21 (7-56) units/L Alkaline Phosphatase 131 H (35-129) units/L Total Protein 7.9 (6.3-8.2) g/dL Albumin 4.7 (3.9-5) g/dL EKG interpretations - Telemetry EKG Rhythm: Sinus Rhythm Assessment and Plan - Patient Problems (1) Elevated troponin Current Visit: Yes Status: Acute Plan to address problem: 60-year-old man with no specific cardiac symptoms, found with elevation in his troponin levels during ER assessment. Troponin levels flat on four serial measurements. ECG shows no acute changes. Troponin elevation is likely a nonspecific finding, we will defer to internal medicine for optimal work-up of the patient's headache and migraines with nausea and vomiting. Further cardiac evaluation will depend on clinical course. Noninvasive myocardial perfusion study will be considered for cardiac assessment.
--- NOTE | 2020-11-03 17:54 | Electrocardiograph Report ---
[facility] Test Date: 2020-11-02 Test Time: 18:33:00 Pat Name: ELLI PAK Department: Room: A487 1 Gender: M Associate Professor Of Psychology: DEEPIKA : 1960 Requested By: SIRISHA ARNOLD Order Number: [id number] Reading MD: Ryan Arteaga Measurements Intervals [place] Rate: 72 P: 84 PA: 146 QRS: 83 QRSD: 80 T: -63 QT: 395 QTc: 428 Interpretive Statements Sinus rhythm Atrial premature complex Non specific ST changes noted. No previous ECG available for comparison Electronically Signed On 11-03-2020 17:54:21 EDT by Ryan Arteaga
--- NOTE | 2020-11-03 18:03 | Electrocardiograph Report ---
[facility] Test Date: 2020-11-03 Test Time: 07:42:32 Pat Name: ELLI PAK Department: Room: A487 1 Gender: M Lemon Picker: JOAN : 1960 Requested By: TYRON GIBBONS Order Number: [id number] Reading MD: Ryan Arteaga Measurements Intervals [place] Rate: 60 P: 50 MN: 150 QRS: 72 QRSD: 108 T: 242 QT: 410 QTc: 408 Interpretive Statements Sinus rhythm Ventricular premature complex Abnormal T, consider ischemia, diffuse leads Compared to ECG 11/02/2020 18:33:00 Ventricular premature complex(es) now present T-wave abnormality now present Nonspecific St changes improved. Electronically Signed On 11-03-2020 18:03:09 EDT by Ryan Arteaga
--- NOTE | 2020-11-03 18:04 | Electrocardiograph Report ---
[facility] Test Date: 2020-11-03 Test Time: 09:51:34 Pat Name: ELLI PAK Department: Room: A487 1 Gender: M Llama Farmer: JOAN : 1960 Requested By: TYRON GIBBONS Order Number: [id number] Reading MD: Ryan Arteaga Measurements Intervals [place] Rate: 56 P: 43 GA: 141 QRS: 72 QRSD: 93 T: 244 QT: 427 QTc: 412 Interpretive Statements Sinus rhythm Ventricular premature complex Abnormal T, consider ischemia, diffuse leads Compared to ECG 11/03/2020 07:42:32 No significant changes Electronically Signed On 11-03-2020 18:04:05 EDT by Ryan Arteaga
[2020-11-03] MEDS: SODIUM CHLORIDE 0.9% 1000 ML 1,000 ML IV SCH (21:37)
[2020-11-04 06:08] LABS: Hematocrit 40.2 % (35.5-45.6); Hemoglobin 13.3 gm/dl (11.8-15.2)
[2020-11-04] MEDS: ASPIRIN EC 325 MG TAB PO SCH (09:43)
[2020-11-04] MEDS: SODIUM CHLORIDE 0.9% 1000 ML 1,000 ML IV SCH (09:43)
--- NOTE | 2020-11-04 10:43 | Progress Note ---
Assessment and Plan Nonspecific symptoms including headache, neck pain, abdominal pain, nausea Newly diagnosed mild-moderate cardiomyopathy with EF 40-45% Troponin elevation Htn Recommend: COVID testing If Covid negative, will plan for left heart cath next week - extensively discussed with patient and his daughter. Add low dose beta darvin Subjective Date of service: 11/04/20 Interval history: No cardiac events Objective Vital Signs Temp Pulse Resp BP BP Pulse Ox 11/04/20 08:07 97.1 F L 59 L 18 154/92 96 11/04/20 04:28 98.0 F 61 18 134/90 99 11/04/20 03:00 60 11/04/20 00:05 98.6 F 65 18 129/90 97 11/03/20 22:00 20 98 11/03/20 20:17 98.9 F 80 18 139/83 99 11/03/20 19:39 99 H 11/03/20 15:58 98.0 F 99 H 16 134/86 96 11/03/20 11:40 97.9 F 58 L 16 130/92 99 - Physical Examination HEENT: Positive: PERRL Neck: Positive: neck supple Cardiac: Positive: Reg Rate and Rhythm Lungs: Positive: clear to auscultation Abdomen: Positive: Soft Skin: Positive: Clear Extremities: Absent: edema - Labs and Meds CBC 11/04/20 Range/Units 04:57 Hgb 13.3 (11.8-15.2) gm/dl Hct 40.2 (35.5-45.6) % Plt Count 209 (140-440) K/mm3
[2020-11-04] MEDS: carvediloL 3.125 MG TAB PO SCH ×2 (12:07→21:10)
--- NOTE | 2020-11-04 13:19 | Progress Note ---
Assessment and Plan Assessment and plan: (1) NSTEMI (non-ST elevated myocardial infarction) Current Visit: Yes Status: Acute Plan to address problem: Admit the patient to the medical telemetry. Aspirin 325 mg p.o. daily. Lipitor 40 mg p.o. daily. Nitroglycerin as needed. We do the serial cardiac enzyme. Echocardiogram cardiology consult. Heparin drip as per protocol (2) Hypertension Current Visit: Yes Status: Acute Plan to address problem: Hydralazine 10 mg IV every 6 hours as needed. We continue the home medication. We will monitor the blood pressure closely (3) Migraine Current Visit: Yes Status: Acute Plan to address problem: Tylenol 650 mg p.o. every 6 as needed. Morphine 1 to 2 mg IV every 4 hours as needed. (4) Vomiting Current Visit: Yes Status: Acute Plan to address problem: Pepcid 20 mg p.o. twice daily for GI prophylaxis. Zofran 4 mg IV every 6 hours as needed. We will monitor the patient closely (5) DVT prophylaxis Current Visit: Yes Status: Acute Plan to address problem: Heparin drip as per protocol for DVT prophylaxis. Pepcid 20 mg p.o. twice daily for GI prophylaxis. Patient is a full code 11/03/20 Patient with hypertension, hearing impaired. He presented with headache, neck pain. Found to have elevated Troponins, Ct Neck shows cervical; arthritis. Cardiology consulted. 11/04/20 Patient with hypertension, hearing impaired. Elevated Troponins. I discussed with Cardiology. He recommends Covid-19 testing because of multiple symptoms. Covi test ordered. I discussed with Patient using daughter on video call to interpret since patient is hearing impaired. History Interval history: Headache left sided neck pain No fever Pain left lower ext Hospitalist Physical - Physical exam Narrative exam: Gen: Not in acute distress, lying in bed, impaired hearing HEENT: Normocephalic, atraumatic Neck : supple, no JVD, tender left side of neck Heart:S1 and S2 reg, no murmurs, rubs or gallop Lungs: clear to auscultation bilaterally, no wheeze Abd: Soft , non tender, non distended, normal bowel sounds Ext: No edema, no clubbing, no cyanosis Neuro: Awake, alert, oriented, moves all ext - Constitutional Vitals: Temp Pulse Resp BP Pulse Ox 97.1 F L 60 20 154/92 98 07/31/21 08:07 11/04/20 11:31 11/04/20 10:53 11/04/20 08:07 11/04/20 10:53 General appearance: Present: no acute distress, well-nourished HEART Score - HEART Score Troponin: Troponin T 0.134 ng/mL (0.00-0.029) H* 11/03/20 05:28 Results - Labs CBC & Chem 7: 11/04/20 04:57 11/03/20 05:28 Labs: Laboratory Last Values WBC 7.8 K/mm3 (4.5-11.0) 11/03/20 05:28 RBC 5.15 M/mm3 (3.65-5.03) H 11/03/20 05:28 Hgb 13.3 gm/dl (11.8-15.2) 11/04/20 04:57 Hct 40.2 % (35.5-45.6) 11/04/20 04:57 MCV 86 fl (84-94) 11/03/20 05:28 MCH 28 pg (28-32) 11/03/20 05:28 MCHC 33 % (32-34) 11/03/20 05:28 RDW 13.7 % (13.2-15.2) 11/03/20 05:28 Plt Count 209 K/mm3 (140-440) 11/04/20 04:57 Lymph % (Auto) 22.8 % (13.4-35.0) 11/03/20 05:28 [place] % (Auto) 10.1 % (0.0-7.3) H 11/03/20 05:28 Eos % (Auto) 4.5 % (0.0-4.3) H 11/03/20 05:28 Baso % (Auto) 0.2 % (0.0-1.8) 11/03/20 05:28 Lymph # (Auto) 1.8 K/mm3 (1.2-5.4) 11/03/20 05:28 [place] # (Auto) 0.8 K/mm3 (0.0-0.8) 11/03/20 05:28 Eos # (Auto) 0.3 K/mm3 (0.0-0.4) 11/03/20 05:28 Baso # (Auto) 0.0 K/mm3 (0.0-0.1) 11/03/20 05:28 Seg Neutrophils % 62.4 % (40.0-70.0) 11/03/20 05:28 Seg Neutrophils # 4.9 K/mm3 (1.8-7.7) 11/03/20 05:28 PT 13.9 Sec. (12.2-14.9) 11/02/20 20:33 INR 1.02 (0.87-1.13) 11/02/20 20:33 APTT 27.6 Sec. (24.2-36.6) 11/02/20 20:33 Heparin Anti-Xa Level 0.69 U.I./ml (0.3-0.7) 11/03/20 10:19 Sodium 141 mmol/L (137-145) 11/03/20 05:28 Potassium 3.9 mmol/L (3.6-5.0) 11/03/20 05:28 Chloride 107.1 mmol/L (98-107) H 11/03/20 05:28 Carbon Dioxide 20 mmol/L (22-30) L 11/03/20 05:28 Anion Gap 18 mmol/L 11/03/20 05:28 BUN 27 mg/dL (9-20) H 11/03/20 05:28 Creatinine 1.2 mg/dL (0.8-1.3) 11/03/20 05:28 Estimated GFR > 60 ml/min 11/03/20 05:28 BUN/Creatinine Ratio 23 % 11/03/20 05:28 Glucose 103 mg/dL (75-100) H 11/03/20 05:28 Calcium 9.0 mg/dL (8.4-10.2) 11/03/20 05:28 Phosphorus 3.10 mg/dL (2.5-4.5) 11/03/20 23:29 Magnesium 2.00 mg/dL (1.7-2.3) 11/03/20 23:29 Total Bilirubin 0.40 mg/dL (0.1-1.2) 11/02/20 17:24 AST 29 units/L (5-40) 11/02/20 17:24 ALT 21 units/L (7-56) 11/02/20 17:24 Alkaline Phosphatase 131 units/L (35-129) H 11/02/20 17:24 Total Creatine Kinase 332 units/L (55-170) H 11/04/20 04:57 Troponin T 0.134 ng/mL (0.00-0.029) H* 11/03/20 05:28 Total Protein 7.9 g/dL (6.3-8.2) 11/02/20 17:24 Albumin 4.7 g/dL (3.9-5) 11/02/20 17:24 Albumin/Globulin Ratio 1.5 % 11/02/20 17:24 Triglycerides 126 mg/dL (2-149) 11/02/20 17:24 Cholesterol 268 mg/dL (50-199) H 11/02/20 17:24 LDL Cholesterol Direct 209 mg/dL (50-130) H 11/02/20 17:24 HDL Cholesterol 57 mg/dL (40-59) 11/02/20 17:24 Cholesterol/HDL Ratio 4.70 % 11/02/20 17:24 Lipase 41 units/L (13-60) 11/02/20 17:24 Urine Color Yellow (Yellow) 11/03/20 00:19 Urine Turbidity Hazy (Clear) 11/03/20 00:19 Urine pH 5.0 (5.0-7.0) 11/03/20 00:19 Ur Specific [place] 1.060 (1.003-1.030) H 11/03/20 00:19 Urine Protein <15 mg/dl mg/dL (Negative) 11/03/20 00:19 Urine Glucose (UA) Neg mg/dL (Negative) 11/03/20 00:19 Urine Ketones Neg mg/dL (Negative) 11/03/20 00:19 Urine Blood Neg (Negative) 11/03/20 00:19 Urine Nitrite Neg (Negative) 11/03/20 00:19 Urine Bilirubin Neg (Negative) 11/03/20 00:19 Urine Urobilinogen < 2.0 mg/dL (<2.0) 11/03/20 00:19 Ur Leukocyte Esterase Neg (Negative) 11/03/20 00:19 Urine WBC (Auto) 4.0 /HPF (0.0-6.0) 11/03/20 00:19 Urine RBC (Auto) 4.0 /HPF (0.0-6.0) 11/03/20 00:19 Uric Acid Crystals 1+ 11/03/20 00:19 Urine Mucus Few /HPF 11/03/20 00:19 [place]/IV: Voiding Method Urinal Active Medications - Current Medications Current Medications: Generic Name Dose Route Start Last Admin Trade Name Freq PRN Reason Stop Dose Admin Acetaminophen 650 mg 11/02/20 21:56 Acetaminophen 325 Mg Tab PO Q6H PRN Pain, Mild (1-3) Aspirin 325 mg 11/03/20 10:00 11/04/20 09:43 Aspirin Ec 325 Mg Tab PO 325 mg QDAY MARIA C Administration Atorvastatin Calcium 40 mg 11/02/20 22:00 11/03/20 21:37 Atorvastatin 40 Mg Tab PO 40 mg QHS MARIA C Administration Carvedilol 3.125 mg 11/04/20 11:00 11/04/20 12:07 Carvedilol 3.125 Mg Tab PO 3.125 mg BID MARIA C Administration Heparin Sodium (Porcine) 3,100 unit 11/02/20 20:26 11/03/20 02:35 Heparin 10,000 Units/10 Ml Vial 40 unit/kg (3100 unit) 3,100 unit IV Administration Q6H PRN Anti-Xa Assay < 0.1 units/ml Heparin Sodium/Sodium Chloride 25,000 unit in 500 mls @ 20 mls/hr 11/02/20 21:00 11/03/20 21:37 Heparin/ 0.45% Nacl-25,000 Unit/500 Ml IV 1,000 units/hr TITRATE MARIA C 20 mls/hr Administration Protocol 1,000 UNITS/HR Sodium Chloride 1,000 mls @ 100 mls/hr 11/02/20 22:00 11/04/20 09:43 Nacl 0.9% 1000 Ml IV 100 mls/hr DIRECT MARIA C Administration Morphine Sulfate 2 mg 11/02/20 21:56 Morphine 4 Mg/1 Ml Inj IV Q5MIN PRN Chest Pain Nitroglycerin 0.4 mg 11/02/20 21:49 Nitroglycerin 0.4 Mg Tab Subl SL .Q5MIN PRN Chest Pain Sodium Chloride 10 ml 11/02/20 21:56 11/04/20 09:43 Sodium Chloride 0.9% 10 Ml Flush Syringe IV 10 ml PRN PRN Administration LINE FLUSH Tramadol HCl 50 mg 11/02/20 21:56 Tramadol 50 Mg Tab PO Q6H PRN Pain, Moderate (4-6)
[2020-11-05 00:31] LABS: Alanine Aminotransferase 19 units/L (7-56); Albumin 3.3 g/dL (3.9-5); BUN/Creatinine Ratio 16; Blood Urea Nitrogen 14 mg/dL (9-20); Calcium 8.3 mg/dL (8.4-10.2); Hemolysis Index 3
[2020-11-05] MEDS: SODIUM CHLORIDE 0.9% 1000 ML 1,000 ML IV SCH ×2 (02:57→22:04)
[2020-11-05 06:01] LABS: Hematocrit 37.9 % (35.5-45.6); Hemoglobin 12.7 gm/dl (11.8-15.2); Mean Corpuscular HGB Conc 33 % (32-34); Mean Corpuscular Volume 85 fl (84-94); Platelet Count 203 K/mm3 (140-440); Red Blood Count 4.44 M/mm3 (3.65-5.03); Red Cell Distribution Width 13.1 % (13.2-15.2)
[2020-11-05 06:13] LABS: BUN/Creatinine Ratio 12; Blood Urea Nitrogen 11 mg/dL (9-20); Calcium 8.7 mg/dL (8.4-10.2); Hemolysis Index 7
[2020-11-05] MEDS: HEPARIN/ 0.45% NACL DRIP 25,000 UNIT/500 ML BAG IV SCH (08:33)
[2020-11-05] MEDS: ASPIRIN EC 325 MG TAB PO SCH (09:44)
[2020-11-05] MEDS: carvediloL 3.125 MG TAB PO SCH ×2 (09:44→22:01)
--- NOTE | 2020-11-05 12:50 | Progress Note ---
Assessment and Plan Assessment and plan: (1) NSTEMI (non-ST elevated myocardial infarction) Current Visit: Yes Status: Acute Plan to address problem: Admit the patient to the medical telemetry. Aspirin 325 mg p.o. daily. Lipitor 40 mg p.o. daily. Nitroglycerin as needed. We do the serial cardiac enzyme. Echocardiogram cardiology consult. Heparin drip as per protocol (2) Hypertension Current Visit: Yes Status: Acute Plan to address problem: Hydralazine 10 mg IV every 6 hours as needed. We continue the home medication. We will monitor the blood pressure closely (3) Migraine Current Visit: Yes Status: Acute Plan to address problem: Tylenol 650 mg p.o. every 6 as needed. Morphine 1 to 2 mg IV every 4 hours as needed. (4) Vomiting Current Visit: Yes Status: Acute Plan to address problem: Pepcid 20 mg p.o. twice daily for GI prophylaxis. Zofran 4 mg IV every 6 hours as needed. We will monitor the patient closely (5) DVT prophylaxis Current Visit: Yes Status: Acute Plan to address problem: Heparin drip as per protocol for DVT prophylaxis. Pepcid 20 mg p.o. twice daily for GI prophylaxis. Patient is a full code 11/03/20 Patient with hypertension, hearing impaired. He presented with headache, neck pain. Found to have elevated Troponins, Ct Neck shows cervical; arthritis. Cardiology consulted. 11/04/20 Patient with hypertension, hearing impaired. Elevated Troponins. I discussed with Cardiology. He recommends Covid-19 testing because of multiple symptoms. Covi test ordered. I discussed with Patient using daughter on video call to interpret since patient is hearing impaired. 11/05/20 Patient with hypertension, hearing impaired. Elevated Troponins. I discussed with Cardiology. He recommends Covid-19 testing because of multiple symptoms. Covid test ordered. I discussed with Patient using daughter on video call to interpret since patient is hearing impaired. If Covid-19 negative, cardiology will do Cardiac cath History Interval history: Headache left sided neck pain No fever Pain left lower ext Hospitalist Physical - Physical exam Narrative exam: Gen: Not in acute distress, lying in bed, impaired hearing HEENT: Normocephalic, atraumatic Neck : supple, no JVD, tender left side of neck Heart:S1 and S2 reg, no murmurs, rubs or gallop Lungs: clear to auscultation bilaterally, no wheeze Abd: Soft , non tender, non distended, normal bowel sounds Ext: No edema, no clubbing, no cyanosis Neuro: Awake, alert, oriented, moves all ext - Constitutional Vitals: Temp Pulse Resp BP Pulse Ox 97.9 F 54 L 20 158/102 98 11/05/20 08:14 11/05/20 08:14 11/05/20 10:00 11/05/20 08:14 11/05/20 10:00 General appearance: Present: no acute distress, well-nourished HEART Score - HEART Score Troponin: Troponin T 0.134 ng/mL (0.00-0.029) H* 11/03/20 05:28 Results - Labs CBC & Chem 7: 11/05/20 05:22 11/05/20 05:22 Labs: Laboratory Last Values WBC 4.5 K/mm3 (4.5-11.0) 11/05/20 05:22 RBC 4.44 M/mm3 (3.65-5.03) 11/05/20 05:22 Hgb 12.7 gm/dl (11.8-15.2) 11/05/20 05:22 Hct 37.9 % (35.5-45.6) 11/05/20 05:22 MCV 85 fl (84-94) 11/05/20 05:22 MCH 29 pg (28-32) 11/05/20 05:22 MCHC 33 % (32-34) 11/05/20 05:22 RDW 13.1 % (13.2-15.2) L 11/05/20 05:22 Plt Count 203 K/mm3 (140-440) 11/05/20 05:22 Lymph % (Auto) 22.8 % (13.4-35.0) 11/03/20 05:28 [place] % (Auto) 10.1 % (0.0-7.3) H 11/03/20 05:28 Eos % (Auto) 4.5 % (0.0-4.3) H 11/03/20 05:28 Baso % (Auto) 0.2 % (0.0-1.8) 11/03/20 05:28 Lymph # (Auto) 1.8 K/mm3 (1.2-5.4) 11/03/20 05:28 [place] # (Auto) 0.8 K/mm3 (0.0-0.8) 11/03/20 05:28 Eos # (Auto) 0.3 K/mm3 (0.0-0.4) 11/03/20 05:28 Baso # (Auto) 0.0 K/mm3 (0.0-0.1) 11/03/20 05:28 Seg Neutrophils % 62.4 % (40.0-70.0) 11/03/20 05:28 Seg Neutrophils # 4.9 K/mm3 (1.8-7.7) 11/03/20 05:28 PT 13.9 Sec. (12.2-14.9) 11/02/20 20:33 INR 1.02 (0.87-1.13) 11/02/20 20:33 APTT 27.6 Sec. (24.2-36.6) 11/02/20 20:33 Heparin Anti-Xa Level 0.23 U.I./ml (0.3-0.7) L 11/05/20 05:22 Sodium 141 mmol/L (137-145) 11/05/20 05:22 Potassium 4.4 mmol/L (3.6-5.0) 11/05/20 05:22 Chloride 109.1 mmol/L (98-107) H 11/05/20 05:22 Carbon Dioxide 25 mmol/L (22-30) 11/05/20 05:22 Anion Gap 11 mmol/L 11/05/20 05:22 BUN 11 mg/dL (9-20) 11/05/20 05:22 Creatinine 0.9 mg/dL (0.8-1.3) 11/05/20 05:22 Estimated GFR > 60 ml/min 11/05/20 05:22 BUN/Creatinine Ratio 12 % 11/05/20 05:22 Glucose 102 mg/dL (75-100) H 11/05/20 05:22 Calcium 8.7 mg/dL (8.4-10.2) 11/05/20 05:22 Phosphorus 3.10 mg/dL (2.5-4.5) 11/03/20 23:29 Magnesium 2.00 mg/dL (1.7-2.3) 11/03/20 23:29 Total Bilirubin 0.30 mg/dL (0.1-1.2) 11/04/20 23:45 AST 22 units/L (5-40) 11/04/20 23:45 ALT 19 units/L (7-56) 11/04/20 23:45 Alkaline Phosphatase 113 units/L (35-129) 11/04/20 23:45 Total Creatine Kinase 286 units/L (55-170) H 11/05/20 05:22 Troponin T 0.134 ng/mL (0.00-0.029) H* 11/03/20 05:28 Total Protein 6.0 g/dL (6.3-8.2) L D 11/04/20 23:45 Albumin 3.3 g/dL (3.9-5) L 11/04/20 23:45 Albumin/Globulin Ratio 1.2 % 11/04/20 23:45 Triglycerides 126 mg/dL (2-149) 11/02/20 17:24 Cholesterol 268 mg/dL (50-199) H 11/02/20 17:24 LDL Cholesterol Direct 209 mg/dL (50-130) H 11/02/20 17:24 HDL Cholesterol 57 mg/dL (40-59) 11/02/20 17:24 Cholesterol/HDL Ratio 4.70 % 11/02/20 17:24 Lipase 41 units/L (13-60) 11/02/20 17:24 Urine Color Yellow (Yellow) 11/03/20 00:19 Urine Turbidity Hazy (Clear) 11/03/20 00:19 Urine pH 5.0 (5.0-7.0) 11/03/20 00:19 Ur Specific [place] 1.060 (1.003-1.030) H 11/03/20 00:19 Urine Protein <15 mg/dl mg/dL (Negative) 11/03/20 00:19 Urine Glucose (UA) Neg mg/dL (Negative) 11/03/20 00:19 Urine Ketones Neg mg/dL (Negative) 11/03/20 00:19 Urine Blood Neg (Negative) 11/03/20 00:19 Urine Nitrite Neg (Negative) 11/03/20 00:19 Urine Bilirubin Neg (Negative) 11/03/20 00:19 Urine Urobilinogen < 2.0 mg/dL (<2.0) 11/03/20 00:19 Ur Leukocyte Esterase Neg (Negative) 11/03/20 00:19 Urine WBC (Auto) 4.0 /HPF (0.0-6.0) 11/03/20 00:19 Urine RBC (Auto) 4.0 /HPF (0.0-6.0) 11/03/20 00:19 Uric Acid Crystals 1+ 11/03/20 00:19 Urine Mucus Few /HPF 11/03/20 00:19 [place]/IV: Voiding Method Urinal Active Medications - Current Medications Current Medications: Generic Name Dose Route Start Last Admin Trade Name Freq PRN Reason Stop Dose Admin Acetaminophen 650 mg 11/02/20 21:56 Acetaminophen 325 Mg Tab PO Q6H PRN Pain, Mild (1-3) Aspirin 325 mg 11/03/20 10:00 11/05/20 09:44 Aspirin Ec 325 Mg Tab PO 325 mg QDAY MARIA C Administration Atorvastatin Calcium 40 mg 11/02/20 22:00 11/04/20 21:10 Atorvastatin 40 Mg Tab PO 40 mg QHS MARIA C Administration Carvedilol 3.125 mg 11/04/20 11:00 11/05/20 09:44 Carvedilol 3.125 Mg Tab PO 3.125 mg BID MARIA C Administration Heparin Sodium (Porcine) 3,100 unit 11/02/20 20:26 11/03/20 02:35 Heparin 10,000 Units/10 Ml Vial 40 unit/kg (3100 unit) 3,100 unit IV Administration Q6H PRN Anti-Xa Assay < 0.1 units/ml Heparin Sodium/Sodium Chloride 25,000 unit in 500 mls @ 20 mls/hr 11/02/20 21:00 11/05/20 08:33 Heparin/ 0.45% Nacl-25,000 Unit/500 Ml IV 1,050 units/hr TITRATE MARIA C 21 mls/hr Administration Protocol 1,000 UNITS/HR Sodium Chloride 1,000 mls @ 100 mls/hr 11/02/20 22:00 11/05/20 02:57 Nacl 0.9% 1000 Ml IV 100 mls/hr DIRECT MARIA C Administration Morphine Sulfate 2 mg 11/02/20 21:56 Morphine 4 Mg/1 Ml Inj IV Q5MIN PRN Chest Pain Nitroglycerin 0.4 mg 11/02/20 21:49 Nitroglycerin 0.4 Mg Tab Subl SL .Q5MIN PRN Chest Pain Sodium Chloride 10 ml 11/02/20 21:56 11/04/20 21:10 Sodium Chloride 0.9% 10 Ml Flush Syringe IV 10 ml PRN PRN Administration LINE FLUSH Tramadol HCl 50 mg 11/02/20 21:56 Tramadol 50 Mg Tab PO Q6H PRN Pain, Moderate (4-6)
--- NOTE | 2020-11-05 12:55 | Progress Note ---
Assessment and Plan Nonspecific symptoms including headache, neck pain, abdominal pain, nausea Newly diagnosed mild-moderate cardiomyopathy with EF 40-45% Troponin elevation Htn Recommend: COVID testing If Covid negative, will plan for left heart cath next week - extensively discussed with patient and his daughter. Subjective Date of service: 11/05/20 Interval history: No acute events. COVID test still pending Objective Vital Signs Temp Pulse Resp BP Pulse Ox 11/05/20 10:00 20 98 11/05/20 08:14 97.9 F 54 L 18 158/102 100 11/05/20 04:33 56 L 144/91 97 11/04/20 22:00 77 20 98 11/04/20 21:10 71 152/94 11/04/20 20:11 71 152/94 95 11/04/20 20:00 98.6 F 11/04/20 16:50 98.8 F 62 18 146/86 97 - Physical Examination HEENT: Positive: PERRL Neck: Positive: neck supple Cardiac: Positive: Reg Rate and Rhythm Lungs: Positive: clear to auscultation Neuro: Positive: Grossly Intact Abdomen: Positive: Soft Skin: Positive: Clear Extremities: Absent: edema - Labs and Meds Cardiac Enzymes 11/04/20 Range/Units 23:45 AST 22 (5-40) units/L CBC 11/05/20 Range/Units 05:22 WBC 4.5 (4.5-11.0) K/mm3 RBC 4.44 (3.65-5.03) M/mm3 Hgb 12.7 (11.8-15.2) gm/dl Hct 37.9 (35.5-45.6) % Plt Count 203 (140-440) K/mm3 Comprehensive Metabolic Panel 11/04/20 11/05/20 Range/Units 23:45 05:22 Sodium 137 141 (137-145) mmol/L Potassium 4.0 4.4 (3.6-5.0) mmol/L Chloride 106.6 109.1 H (98-107) mmol/L Carbon Dioxide 23 25 (22-30) mmol/L BUN 14 11 (9-20) mg/dL Creatinine 0.9 0.9 (0.8-1.3) mg/dL Glucose 98 102 H (75-100) mg/dL Calcium 8.3 L 8.7 (8.4-10.2) mg/dL AST 22 (5-40) units/L ALT 19 (7-56) units/L Alkaline Phosphatase 113 (35-129) units/L Total Protein 6.0 L D (6.3-8.2) g/dL Albumin 3.3 L (3.9-5) g/dL
[2020-11-06] MEDS: SODIUM CHLORIDE 0.9% 1000 ML 1,000 ML IV SCH (06:17)
[2020-11-06] MEDS: HEPARIN/ 0.45% NACL DRIP 25,000 UNIT/500 ML BAG IV SCH (06:18)
[2020-11-06] MEDS ORDERED: SODIUM CHLORIDE 0.9% 500 ML 500 ML IV SCH (09:00)
[2020-11-06] MEDS: ASPIRIN EC 325 MG TAB PO SCH (09:11)
[2020-11-06] MEDS: carvediloL 3.125 MG TAB PO SCH (09:11)
[2020-11-06 09:54] LABS: Hematocrit 39.6 % (35.5-45.6); Hemoglobin 13.4 gm/dl (11.8-15.2)
--- NOTE | 2020-11-06 09:57 | Progress Note ---
Assessment and Plan - Patient Problems (1) Elevated troponin Current Visit: Yes Status: Acute Plan to address problem: A cardiac catheterization has been ordered, patient is n.p.o., will proceed with cardiac catheterization today. Subjective Date of service: 11/06/20 Interval history: Patient is comfortable, no acute distress. He is awaiting a cardiac catheterization, risks and benefits have been discussed extensively with patient and his daughter who is on video phone communication, they consent to proceed with the procedure, and patient has signed the consent. Objective Vital Signs Temp Pulse Pulse Resp BP BP Pulse Ox 11/06/20 06:00 98.5 F 56 L 18 146/98 100 11/06/20 03:45 63 20 98 11/05/20 22:01 54 L 155/102 11/05/20 22:00 54 L 11/05/20 20:00 98.5 F 54 L 18 155/102 98 11/05/20 14:00 54 L 11/05/20 10:00 20 98 - Physical Examination General: No Apparent Distress HEENT: Positive: PERRL, Other (Patient is deaf mute, communicates by translation with his daughter on video phone) Neck: Positive: neck supple Cardiac: Positive: Reg Rate and Rhythm Lungs: Positive: clear to auscultation Neuro: Positive: Grossly Intact Abdomen: Positive: Soft Skin: Positive: Clear Extremities: Absent: edema - Labs and Meds CBC 11/06/20 Range/Units 09:01 Hgb 13.4 (11.8-15.2) gm/dl Hct 39.6 (35.5-45.6) % Plt Count 195 (140-440) K/mm3
[2020-11-06] MEDS ORDERED: HEPARIN/NS 5000 UNIT/500ML 1,000 ML IR ONE (12:31)
[2020-11-06] MEDS ORDERED: MIDAZOLAM 2 MG/2 ML INJ ONE (12:31)
[2020-11-06] MEDS ORDERED: HEPARIN 10,000 UNITS/10 ML VIAL ONE (12:31)
[2020-11-06] MEDS ORDERED: SODIUM CHLORIDE 0.9% 1000 ML 1,000 ML ONE (12:31)
[2020-11-06] MEDS ORDERED: VERAPAMIL 5 MG/2 ML INJ ONE (12:32)
[2020-11-06] MEDS ORDERED: LIDOCAINE (2%) 20 MG/1 ML VIAL 20 ML MDV INFILTRATI ONE (12:32)
[2020-11-06] MEDS ORDERED: NITROGLYCERIN SYRINGE 3 ML ONE (12:32)
[2020-11-06] MEDS ORDERED: fentaNYL 100 MCG/2 ML INJ ONE (12:32)
--- NOTE | 2020-11-06 13:28 | Event Note ---
Date: 11/06/20 Cardiac catheterization was completed via the right radial approach, we found mild luminal irregularities of the mid right coronary artery, otherwise angiographically normal coronary arteries. Left ventricular systolic function at the lower limits of normal, ejection fraction 50 to 55% following an extrasystolic beat. Patient is stable for cardiac discharge on medical therapy and risk factor modification.
[2020-11-06] MEDS ORDERED: LOSARTAN 50 MG TAB PO SCH (14:00)
[2020-11-06] MEDS ORDERED: traMADol 50 MG TAB PO PRN (14:00)
--- NOTE | 2020-11-06 14:14 | Discharge Summary ---
Providers - Providers Date of Admission: 11/03/20 09:02 Date of discharge: 11/06/20 Attending physician: ROSALVA JIMENEZ 11/02/20 Consult to Cardiac Rehabilitation [CONS] Routine Reason For Exam: Phase 1 Consult to Cardiac Rehabilitation [CONS] Routine Reason For Exam: Phase I 11/02/20 21:25 Consult to Cardiology [CONS] Stat Consulting Provider: RAHEEM BARBOZA Reason For Exam: NSTEMI 11/06/20 13:25 Consult to Cardiac Rehabilitation [CONS] Routine Reason For Exam: Cardiac Rehab Evaluation Primary care physician: CÉSAR GIANG Hospitalization Condition: Fair Hospital course: Patient is 60-year-old deaf male with history of hypertension and migraine and occasional alcohol abuse was brought to the emergency room because of headache, dizziness, left-sided neck pain, nausea, vomiting, diarrhea, and left arm pain. No preceding fall, trauma, or injury. Patient took muscle relaxers with limited relief. No known sick contacts. Patient does not have a history of recurrent headaches or neck pain. Patient has not received his COVID-19 vaccine series. Denies fever, chills, cough, chest pain, syncope, seizure, pares thesias, numbness, weakness. In the emergency room patient is found to have elevated troponin. Initial troponin is 0.121. He as admitted with diagnosis of NSTEMI. 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 He was treated with Aspirin. Lipitor, Nitroglycerin. Cardiac cath was done 11/06/20 show luminal irregularities. By then chest pain had resolved so was discharged home. (1) NSTEMI (non-ST elevated myocardial infarction) Current Visit: Yes Status: Acute Plan to address problem: Admit the patient to the medical telemetry. Aspirin 325 mg p.o. daily. Lipitor 40 mg p.o. daily. Nitroglycerin as needed. We do the serial cardiac enzyme. Echocardiogram cardiology consult. Heparin drip as per protocol (2) Hypertension Current Visit: Yes Status: Acute Plan to address problem: Hydralazine 10 mg IV every 6 hours as needed. We continue the home medication. We will monitor the blood pressure closely (3) Migraine Current Visit: Yes Status: Acute Plan to address problem: Tylenol 650 mg p.o. every 6 as needed. Morphine 1 to 2 mg IV every 4 hours as needed. (4) Vomiting Current Visit: Yes Status: Acute Plan to address problem: Pepcid 20 mg p.o. twice daily for GI prophylaxis. Zofran 4 mg IV every 6 hours as needed. We will monitor the patient closely (5) DVT prophylaxis Current Visit: Yes Status: Acute Plan to address problem: Heparin drip as per protocol for DVT prophylaxis. Pepcid 20 mg p.o. twice daily for GI prophylaxis. Patient is a full code 11/03/20 Patient with hypertension, hearing impaired. He presented with headache, neck pain. Found to have elevated Troponins, Ct Neck shows cervical; arthritis. Cardiology consulted. 11/04/20 Patient with hypertension, hearing impaired. Elevated Troponins. I discussed with Cardiology. He recommends Covid-19 testing because of multiple symptoms. Covi test ordered. I discussed with Patient using daughter on video call to interpret since patient is hearing impaired. 11/05/20 Patient with hypertension, hearing impaired. Elevated Troponins. I discussed with Cardiology. He recommends Covid-19 testing because of multiple symptoms. Covid test ordered. I discussed with Patient using daughter on video call to interpret since patient is hearing impaired. If Covid-19 negative, cardiology will do Cardiac cath 11/06/20 Patient discharged home. main diagnosis :NSTEMI Disposition: DC-01 TO HOME OR SELFCARE Final Discharge Diagnosis (Prints w/discharge instructions): 1.NSTEMI. 2.Left popliteal cyst. To follow with your Doctor Time spent for discharge: 40 mins - Discharge Diagnoses (1) NSTEMI (non-ST elevated myocardial infarction) Status: Acute (2) Hypertension Status: Acute (3) Popliteal cyst Status: Acute (4) Arthritis Status: Acute Core Measure Documentation - Palliative Care Palliative Care/ Comfort Measures: Not Applicable - Core Measures Any of the following diagnoses?: acute NM - Acute NM Discharge Requirements Aspirin at discharge: Yes NIRMALA/ARB for LVSD if EF <40%: Yes Beta darvin at discharge: No Reason for no beta darvin on DC: Bradycardia Statin for LDL = or >100 mg/dl on DC: Yes Exam - Constitutional Vitals: Temp Pulse Resp BP Pulse Ox 98.5 F 56 L 18 146/98 100 11/06/20 06:00 11/06/20 06:00 11/06/20 06:00 11/06/20 06:00 11/06/20 10:55 Plan Activity: other (No strenous activity until cleared by cardiology) Diet: low fat, low cholesterol, low salt Plan of Treatment: 1.Follow up with PCP in 1 week. 2.Follow left popliteal cyst with PCP in 1 week 3.Follow up with Dr. Green, Cardiology in 1 week Follow up with: CÉSAR GIANG MD [Primary Care Provider] - 7 Days Forms: CardCat PCI D/C Instructions Prescriptions: Losartan [Cozaar] 50 mg PO QDAY #30 tablet Aspirin EC [Halfprin EC] 81 mg PO QDAY #30 tablet AtorvaSTATin [Lipitor] 40 mg PO QHS #30 tablet
[2020-11-06 15:29] VITALS: BP 145/87
--- NOTE | 2020-11-06 15:45 | Cardiac Catherization Report ---
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 He also had generalized muscle aches, which he describes as spasms. The Emergency Room workup included the measurement of troponin levels, which were elevated, but unchanged on serial measurements. The patient's ECG was negative. Nevertheless, a cardiac consultation was requested for assessment. Due to the elevation in the troponin levels, cardiac ischemic workup was recommended with a diagnostic coronary angiography. PROCEDURES: 1. Left heart catheterization. 2. Selective left and right coronary angiography. 3. Left ventricular angiography. 4. Sedation time start 12:55, end 13:08. DESCRIPTION OF PROCEDURE: The patient was prepped and draped in a sterile fashion after informed consent. The right radial cath site was prepped and draped after negative Mariusz's test. Right radial artery was entered using Seldinger technique followed by placement of a 6-Turkish hydrophilic sheath. Routine radial cocktail was administered via the sheath. Selective left and right coronary angiography was performed using a #3.5 left Charlotte and #4 right Charlotte. A pigtail catheter was used for left ventricular angiography. Catheters were then removed, sheath removed and hemostasis achieved using a TR band. The patient was returned to the postprocedure unit in stable condition. There were no complications. FINDINGS: HEMODYNAMICS: Left ventricular end diastolic pressure was 19, following coronary angiography. Ascending aortic pressure was 144/104. There was no significant pressure gradient on pullback across the aortic valve. CORONARY ANGIOGRAPHY: The left main coronary artery was angiographically normal. The left anterior descending artery and its diagonal branches were angiographically normal. The circumflex and its obtuse marginal branches were angiographically normal. The right coronary artery was dominant. This vessel contained mild atherosclerosis in its mid segment with 10-20% luminal stenosis, otherwise was angiographically normal. Left ventricular systolic function was at lower limits of normal with ejection fraction estimated at 50-55%, following an extrasystolic beat. CONCLUSION: 1. Mild irregularities of the mid right coronary artery as reported above, otherwise angiographically normal coronary arteries. 2. Left ventricular systolic function at the lower limits of normal, ejection fraction 50-55%. RECOMMENDATION: Risk factor modification and medical therapy. TID: [id number] RECEIPT: [id number] JULIO/SAUL
--- NOTE | 2020-11-06 17:06 | Vascular Lab Report ---
DUPLEX DOPPLER LOWER EXTREMITY VEINS, LEFT INDICATION / CLINICAL INFORMATION: Left leg pain. TECHNIQUE: Duplex doppler imaging was performed through the veins of the left lower extremity using venous compr ession and other maneuvers. COMPARISON: None available. FINDINGS: LEFT COMMON FEMORAL VEIN: Negative. LEFT FEMORAL VEIN: Negative. LEFT POPLITEAL VEIN: Negative. LEFT CALF VEINS: Negative. ADDITIONAL FINDINGS: There is a 3.3 cm ovoid cystic mass in the popliteal fossa without internal bloo d flow on Doppler exam. IMPRESSION: 1. No sonographic evidence for DVT in the left lower extremity. 2. 3.3 cm left popliteal cyst. Signer Name: Abhay Mancilla MD Signed: 11/06/2020 5:01 PM Workstation Name: [id number]
[2020-11-07] MEDS ORDERED: ASPIRIN EC 81 MG TAB PO SCH (10:00)
== END 2020-11-07 05:45 | disposition home or self-care (01) | DRG 281 ==
LOC: ED 11:02 → 4A 21:56 → OBSVTOIN 11-03 09:02 → UNDODISIN 11-06 19:05
PROVIDERS: ADMIT Hospitalist; ATTEND Internal Medicine
PROC: 4A023N7 Measurement of Cardiac Sampling and Pressure, Left Heart, Percutaneous Approach (ICD-10-PCS; principal; 2020-11-06)
PROC: B2111ZZ Fluoroscopy of Multiple Coronary Arteries using Low Osmolar Contrast (ICD-10-PCS; 2020-11-06)
PROC: B2151ZZ Fluoroscopy of Left Heart using Low Osmolar Contrast (ICD-10-PCS; 2020-11-06)
DX: I21.4 Non-ST elevation (NSTEMI) myocardial infarction (principal); I42.9 Cardiomyopathy, unspecified; G43.909 Migraine, unspecified, not intractable, without status migrainosus; I10 Essential (primary) hypertension; M71.22 Synovial cyst of popliteal space [Baker], left knee; Z20.822 Contact with and (suspected) exposure to COVID-19; M54.2 Cervicalgia; R11.2 Nausea with vomiting, unspecified
CPT/HCPCS: 36415; 70450; 70498; 71045; 80048; 80053; 80061; 81001; 82550; 83690; 83735; 84100; 84484; 85014; 85018; 85025; 85027; 85049; 85520; 85610; 85730; 93005; 93306; 93458; 96361; 96374; 96375; G0378; A9270-GY; C1894; J1644; J2250; J2270; J2405; J3010; J7030; Q9967; U0003